=== PATIENT | male | born 1955 | race Caucasian/White ===

== ENCOUNTER → 2018-02-28 | Outpatient (CLI) | payer BC ==
--- NOTE | 2018-02-28 19:15 | RAD ---
Examination: ABDOMEN COMPLETE History: pt fell RUQ pain looking for a bleed. pt had ribs done earlier. TECHNICALLY DIFFICULT DUE TO SIZE OF PT WAS HAD ALOT PAIN RUQ PT HAD ALOT OF GAS NO BLEED IDENTIFIED Comparison/Correlation: None Findings: Upper abdominal ultrasound exam was performed. Exam is technically difficult due to patient size and significant abdominal pain. Significant bowel gas also present limiting assessment. Proximal pancreas is normal. Distal pancreas is obscured by bowel gas. Normal portal venous flow identified. Fatty infiltration of the liver is present. Common bile duct diameter of 0.7 cm noted. Spleen measures 11.4 cm longitudinal. Abdominal aorta and inferior vena cava are poorly visualized due to overlying bowel gas. Cholecystectomy noted. No right upper quadrant ascites. Right kidney measures 11.2 cm x 7.4 cm x 7.3 cm. Left kidney measures 10.8 cm x 6.4 cm x 5.8 cm. Impression: Fatty infiltration of the liver. No hydronephrosis or biliary dilatation. Electronically signed by: Oli Camilo MD (02/28/2018 7:10 PM) [facility]
--- NOTE | 2018-03-01 00:02 | RAD ---
Examination: RIBS RIGHT AND PA CHEST History: FALL ON ICE TODAY. INTERCOSTAL PAIN RT SIDE. pT HEARD SNAP WHEN HE FELL. NO SOA, BUT SHALLOW BREATHING LESS PAINFUL THAN FULL LARGE INSPIRATION. AREA OF PAIN MARKED W ARROW, MORE LATERAL THAN ANTERIOR, MID RIBS
Comparison/Correlation: None Findings: PA view of the chest was obtained. 4 additional images of the right ribs were provided. Dual-lead left-sided ICD is present. Leads are intact. No pneumothorax. Size is within normal limits. Minimal bibasilar linear atelectasis is present. Right upper quadrant surgical clips are noted. No acute displaced right rib fracture or bony destruction. Subtle deformity of the right seventh rib laterally is questioned on a single view. This is noted on the frontal view of the right ribs. Impression: No displaced fracture. Possibly of nondisplaced right seventh rib fracture laterally is not entirely excluded. No infiltrate. Electronically signed by: Oli Camilo MD (02/28/2018 11:58 PM) [facility]
== END | disposition home or self-care (01) ==
LOC: US 17:22
PROVIDERS: ATTEND Family Medicine
DX: K76.0 Fatty (change of) liver, not elsewhere classified (principal); R07.82 Intercostal pain; W19.XXXD Unspecified fall, subsequent encounter
CPT/HCPCS: 71101; 76700

== ENCOUNTER → 2019-12-25 | Outpatient (CLI) | payer BC ==
--- NOTE | 2019-12-25 16:36 | RAD ---
Study: CR KUB Indication: Abdominal pain. Comparison: None. Findings: Partially imaged ICD wire. Right upper quadrant and left hemipelvis surgical clips. Nonobstructive bowel gas pattern. Nonspecific paucity of small bowel gas. Colonic stool burden is mild. Small focus of mineralization projects at the lower pole the left kidney possibly on account of a 3 mm nephrolithiasis. Impression: 1. Nonobstructive bowel gas pattern. 2. Mild volume well-formed stool burden. 3. Possible 3 mm intrarenal stone at the lower pole on the left. Electronically signed by: PAUL HERRERA MD (12/25/2019 4:34 PM) [id number]
== END ==
LOC: DXRAD 12:15
DX: N20.0 Calculus of kidney (principal)
CPT/HCPCS: 74018